=== PATIENT | female | born 1940 | race Caucasian/White ===

== ENCOUNTER 2019-11-30 16:17 | Emergency (ER) | payer MEDICARE ==
[~2019-11-30] VITALS: Ht 172.7 cm; Wt 77.1 kg
[2019-11-30 16:24] VITALS: Ht 172.7 cm; Wt 77.1 kg
[2019-11-30 17:15] LABS: BASOPHIL % 0.4 % (0-2); PLATELET COUNT 315 x10^3mcL (130-400)
[2019-11-30 17:16] LABS: RED CELL DISTRIBUTION WIDTH 19.5 % (11.5-14.5)
[2019-11-30 17:38] LABS: CARBON DIOXIDE 31.4 mmol/L (21-32); CHLORIDE SERUM 101 mmol/L (98-107); CREATININE SERUM 1.1 mg/dL (0.6-1.0); GLUCOSE SERUM 171 mg/dL (74-106); POTASSIUM SERUM 4.4 mmol/L (3.5-5.1); SODIUM SERUM 137 mmol/L (136-145); TOTAL PROTEIN, SERUM 7.9 g/dL (6.4-8.2)
[2019-11-30 17:39] LABS: ALBUMIN 2.8 g/dL (3.4-5.0); ALKALINE PHOSPHATASE 63 U/L (46-116); ALT/SGPT 15 U/L (14-59); AST/SGOT 13 U/L (15-37); BILIRUBIN TOTAL 0.4 mg/dL (0.20-1.00); CALCIUM 8.5 mg/dL (8.5-10.1); LIPASE 120 IU/L (73-393)
[2019-11-30] MEDS ORDERED: ELIQUIS5 M1 PO (18:29)
[2019-11-30] MEDS ORDERED: INSULIN SYRING1 EA29 (18:29)
[2019-11-30] MEDS ORDERED: LASIX20 MG PO (18:29)
[2019-11-30] MEDS ORDERED: INS5050 (18:30)
[2019-11-30] MEDS ORDERED: NORCO1 TA2 PO (18:30)
[2019-11-30] MEDS ORDERED: TIROSINT50 MC1 PO (18:31)
[2019-11-30] MEDS ORDERED: CALCIUM 600 +1 EACH (18:31)
[2019-11-30] MEDS ORDERED: COREG25 M1 PO (18:31)
[2019-11-30 23:08] VITALS: BP 162/57
== END 2019-11-30 23:59 | disposition short-term general hospital (02) ==
LOC: ED 16:17
PROVIDERS: Emergency Medicine
DX: R55 Syncope and collapse (principal); I50.9 Heart failure, unspecified; R41.82 Altered mental status, unspecified; E11.22 Type 2 diabetes mellitus with diabetic chronic kidney disease; I13.0 Hypertensive heart and chronic kidney disease with heart failure and stage 1 through stage 4 chronic kidney disease, or unspecified chronic kidney disease; N18.9 Chronic kidney disease, unspecified
CPT/HCPCS: 82962; 83880; 87798; J1940; Q0092; Q9967